=== PATIENT | female | born 1955 | race Caucasian/White ===

== ENCOUNTER 2017-08-30 08:12 | Observation (INO) | payer MEDICARE, OTHER ==
[2017-08-30 08:35] LABS: PCO2 Arterial 28 mmHg (35-45)
[2017-08-30 08:41] LABS: Hematocrit 37 % (35-47); Hemoglobin 12.5 g/dl (12.0-16.0); Mean Corpuscular HGB Conc 34 g/dl (31-36); Mean Corpuscular Hemoglobin 31 pg (27-31); Mean Corpuscular Volume 92 fL (80-97); Mean Platelet Volume 7 um3 (7.4-10.4); Red Blood Count 4.07 10^6/ul (4.0-5.4); Red Cell Distribution Width 16 % (10.5-15)
[2017-08-30 08:43] LABS: Urine Bilirubin Negative (Negative); Urine Glucose Negative (Negative); Urine Nitrite Negative (Negative)
[2017-08-30 08:56] LABS: Albumin 3.8 g/dL (3.2-5.2); BUN/Creatinine Ratio 17.5 (8-20); C Reactive Protein 18.81 mg/L (< 5.00); Calcium 8.7 mg/dL (8.6-10.3); EGFR African American 93.5 (>60); EGFR Non-African American 72.7 (>60); Globulin 3.3 g/dL (2-4); Potassium 3.3 mmol/L (3.5-5.0); Total Bilirubin 0.3 mg/dL (0.2-1.0); Total Protein 7.1 g/dL (6.4-8.9)
[2017-08-30 08:57] LABS: Troponin I 0.02 ng/mL (<0.04)
[2017-08-30] MEDS ORDERED: Potassium Chlor TAB* 20 MEQ TAB.ER PO ONE (09:03)
--- NOTE | 2017-08-30 09:43 | RAD ---
HISTORY: Shortness of breath COMPARISONS: August 30, 2017 at 12:58 AM VIEWS: 1: frontal portable view of the chest at 9:25 AM FINDINGS: LINES AND TUBES: None. CARDIOMEDIASTINAL SILHOUETTE: The cardiomediastinal silhouette is normal for portable technique. PLEURA: The costophrenic angles are sharp. No pleural abnormalities are noted. LUNG PARENCHYMA: There is patchy alveolar desiccation the lung bases bilaterally ABDOMEN: The upper abdomen is clear. There is no subphrenic gas. BONES AND SOFT TISSUES: No bone or soft tissue abnormalities are noted. IMPRESSION: [employer]. RECOMMEND FOLLOW-UP UNTIL RESOLUTION TO EXCLUDE UNDERLYING PULMONARY PARENCHYMAL PATHOLOGY
[2017-08-30] MEDS ORDERED: Azithromycin IV* 500 MG ADVAN VIAL IVPB ONE (10:00)
[2017-08-30] MEDS ORDERED: NS 0.9% IVPB ONE (10:00)
[2017-08-30] MEDS ORDERED: CEFTRIAXONE IVPB ONE (10:00)
[2017-08-30] MEDS ORDERED: cefTRIAXone(*) 1 GM ADVAN ONE (10:23)
[2017-08-30] MEDS ORDERED: Furosemide IV* 10 MG/ML VIAL (40 MG) IV ONE (11:15)
[2017-08-30] MEDS ORDERED: Acetaminophen TAB* 325 MG PO PRN (11:20)
[2017-08-30] MEDS ORDERED: Morphine INJ* 2 MG/ML 1 ML SYRINGE (TWO MG - NEW SYRINGE VERSION) IV PRN (11:20)
[2017-08-30 11:38] LABS: Magnesium 1.9 mg/dL (1.9-2.7)
--- NOTE | 2017-08-30 11:47 | ED ---
Maribell Nichols Alfonso, scribed for Pelon Encarnacion MD on 08/30/17 at 0828 . Shortness of Breath - HPI Summary HPI Summary: This patient is a 62 year old F BIBA from [facility] to [facility] with a chief complaint of SOB since a few months ago, worse since yesterday. She reports it feels like a big rubber band was across my diaphragm. She is currently on BiPaP. The patient rates the pain 0/10 in severity. Symptoms aggravated by position (lying down). Symptoms alleviated by breathing treatments EPIC DIRECTOR. Patient reports calf swelling, palpitations, weight loss (180 lb to 166 lb), and cough. Patient denies fever, CP, and pain. She recently completed a course of prednisone. - History of Current Complaint Chief Complaint: EDRespiratoryDistress Hx Obtained From: Patient Onset/Duration: Gradual Onset, Worse Since - yesterday, Other - Lasting months Timing: Constant Aggrevating Factors: Other - Lying down Alleviating Factors: Other - breathing treatment EPIC DIRECTOR Associated Signs & Symptoms: Edema - and cough - Allergy/Home Medications Allergies/Adverse Reactions: Allergies Allergy/AdvReac Type Severity Reaction Status Date / Time No Known Allergies Allergy Verified 08/30/17 08:44 PMH/Surg Hx/FS Hx/Imm Hx Musculoskeletal History: Reports: Hx Rheumatoid Arthritis Sensory History: Denies: Hx Deafness Opthamlomology History: Denies: Hx Legally Blind EENT History: Denies: Hx Deafness Infectious Disease History: No Infectious Disease History: Denies: Traveled Outside the [place] in Last 30 Days - Family History Known Family History: Positive: Other - CHF mother - Social History Alcohol Use: Weekly Substance Use Type: Reports: None Smoking Status (MU): Never Smoked Tobacco Review of Systems Positive: Other - weight loss (180 lb to 166 lb). Negative: Fever Positive: Palpitations. Negative: Chest Pain Positive: Shortness Of Breath, Cough Positive: Edema, Other - negative pain All Other Systems Reviewed And Are Negative: Yes Physical Exam - Summary Physical Exam Summary: VITAL SIGNS: Reviewed. GENERAL: Patient is a well-developed and nourished female who is lying comfortable in the stretcher. Patient is not in any acute respiratory distress. HEAD AND FACE: No signs of trauma. No ecchymosis, hematomas or skull depressions. No sinus tenderness. EYES: PERRLA, EOMI x 2, No injected conjunctiva, no nystagmus. EARS: Hearing grossly intact. Ear canals and tympanic membranes are within normal limits. MOUTH: Oropharynx within normal limits. NECK: Supple, trachea is midline, no adenopathy, no JVD, no carotid bruit, no c- spine tenderness, neck with full ROM. CHEST: Symmetric, no tenderness at palpation LUNGS: Decreased breath sounds bilaterally. Crackles in both bases of the lungs. CVS: Regular rate and rhythm, S1 and S2 present, no murmurs or gallops appreciated. ABDOMEN: Soft, non-tender. No signs of distention. No rebound no guarding, and no masses palpated. Bowel sounds are normal. EXTREMITIES: FROM in all major joints, no cyanosis or clubbing. 1+ edema. NEURO: Alert and oriented x 3. No acute neurological deficits. Speech is normal and follows commands. Anxious. SKIN: Dry and warm Triage Information Reviewed: Yes Vital Signs On Initial Exam: Initial Vitals Temp Pulse Resp BP Pulse Ox 98.8 F 124 20 133/83 98 08/30/17 08:14 08/30/17 08:14 08/30/17 08:14 08/30/17 08:14 08/30/17 08:14 Vital Signs Reviewed: Yes - [place] Coma Scale Coma Scale Total: 15 Diagnostics - Vital Signs Vital Signs Temp Pulse Resp BP Pulse Ox 08/30/17 08:14 98.8 F 124 20 133/83 98 - Laboratory Lab Results: Lab Results 08/30/17 08/30/17 08/30/17 Range/Units 08:20 08:30 08:30 WBC 14.0 H (3.5-10.8) 10^3/ul RBC 4.07 (4.0-5.4) 10^6/ul Hgb 12.5 (12.0-16.0) g/dl Hct 37 (35-47) % MCV 92 (80-97) fL MCH 31 (27-31) pg MCHC 34 (31-36) g/dl RDW 16 H (10.5-15) % Plt Count 458 H (150-450) 10^3/ul MPV 7 L (7.4-10.4) um3 Neut % (Auto) 93.1 H (38-83) % Lymph % (Auto) 5.0 L (25-47) % Wirt % (Auto) 1.6 (1-9) % Eos % (Auto) 0 (0-6) % Baso % (Auto) 0.3 (0-2) % Absolute Neuts (auto) 13.0 H (1.5-7.7) 10^3/ul Absolute Lymphs (auto) 0.7 L (1.0-4.8) 10^3/ul Absolute Monos (auto) 0.2 (0-0.8) 10^3/ul Absolute Eos (auto) 0 (0-0.6) 10^3/ul Absolute Basos (auto) 0 (0-0.2) 10^3/ul Absolute Nucleated RBC 0 10^3/ul Nucleated RBC % 0 APTT (26.0-36.3) seconds Patient Temperature Not Reportable ABG pH 7.52 H (7.35-7.45) ABG pH (Temp Correct) Not Reportable ABG pCO2 28 L (35-45) mmHg ABG pCO2 (Temp Corrct Not Reportable ABG pO2 61 L (80-100) mmHg ABG pO2 (Temp Correct Not Reportable ABG HCO3 25.6 (19-31) mmol/L ABG O2 Saturation 95.6 (95-98) % ABG Base Excess 0.9 (-2.0-2.0) Respiration Rate Not Reportable O2 Delivery Device Oxy Ventilator Type Not Reportable Vent Mode Not Reportable FiO2 Not Reportable Inspiratory Time Not Reportable PEEP Not Reportable Pressure Support Not Reportable Pressure Control Not Reportable EPAP Not Reportable IPAP Not Reportable BiPAP Not Reportable Sodium 139 (133-145) mmol/L Potassium 3.3 L (3.5-5.0) mmol/L Chloride 106 (101-111) mmol/L Carbon Dioxide 22 (22-32) mmol/L Anion Gap 11 (2-11) mmol/L BUN 14 (6-24) mg/dL Creatinine 0.80 (0.51-0.95) mg/dL Est GFR ( Amer) 93.5 (>60) Est GFR (Non-Af Amer) 72.7 (>60) BUN/Creatinine Ratio 17.5 (8-20) Glucose 174 H (70-100) mg/dL Calcium 8.7 (8.6-10.3) mg/dL Magnesium 1.9 (1.9-2.7) mg/dL Total Bilirubin 0.30 (0.2-1.0) mg/dL AST 16 (13-39) U/L ALT 11 (7-52) U/L Alkaline Phosphatase 88 (34-104) U/L Total Creatine Kinase 40 (10-223) U/L Troponin I 0.02 (<0.04) ng/mL C-Reactive Protein 18.81 H (< 5.00) mg/L B-Natriuretic Peptide ( - 100) pg/mL Total Protein 7.1 (6.4-8.9) g/dL Albumin 3.8 (3.2-5.2) g/dL Globulin 3.3 (2-4) g/dL Albumin/Globulin Ratio 1.2 (1-3) TSH Pending Urine Color Urine Appearance Urine pH (5-9) Ur Specific [place] (1.010-1.030) Urine Protein (Negative) Urine Ketones (Negative) Urine Blood (Negative) Urine Nitrate (Negative) Urine Bilirubin (Negative) Urine Urobilinogen (Negative) Ur Leukocyte Esterase (Negative) Urine Glucose (Negative) 08/30/17 08/30/17 08/30/17 Range/Units 08:30 08:30 08:30 WBC (3.5-10.8) 10^3/ul RBC (4.0-5.4) 10^6/ul Hgb (12.0-16.0) g/dl Hct (35-47) % MCV (80-97) fL MCH (27-31) pg MCHC (31-36) g/dl RDW (10.5-15) % Plt Count (150-450) 10^3/ul MPV (7.4-10.4) um3 Neut % (Auto) (38-83) % Lymph % (Auto) (25-47) % Wirt % (Auto) (1-9) % Eos % (Auto) (0-6) % Baso % (Auto) (0-2) % Absolute Neuts (auto) (1.5-7.7) 10^3/ul Absolute Lymphs (auto) (1.0-4.8) 10^3/ul Absolute Monos (auto) (0-0.8) 10^3/ul Absolute Eos (auto) (0-0.6) 10^3/ul Absolute Basos (auto) (0-0.2) 10^3/ul Absolute Nucleated RBC 10^3/ul Nucleated RBC % APTT 31.8 (26.0-36.3) seconds Patient Temperature ABG pH (7.35-7.45) ABG pH (Temp Correct) ABG pCO2 (35-45) mmHg ABG pCO2 (Temp Corrct ABG pO2 (80-100) mmHg ABG pO2 (Temp Correct ABG HCO3 (19-31) mmol/L ABG O2 Saturation (95-98) % ABG Base Excess (-2.0-2.0) Respiration Rate O2 Delivery Device Ventilator Type Vent Mode FiO2 Inspiratory Time PEEP Pressure Support Pressure Control EPAP IPAP BiPAP Sodium (133-145) mmol/L Potassium (3.5-5.0) mmol/L Chloride (101-111) mmol/L Carbon Dioxide (22-32) mmol/L Anion Gap (2-11) mmol/L BUN (6-24) mg/dL Creatinine (0.51-0.95) mg/dL Est GFR ( Amer) (>60) Est GFR (Non-Af Amer) (>60) BUN/Creatinine Ratio (8-20) Glucose (70-100) mg/dL Calcium (8.6-10.3) mg/dL Magnesium (1.9-2.7) mg/dL Total Bilirubin (0.2-1.0) mg/dL AST (13-39) U/L ALT (7-52) U/L Alkaline Phosphatase (34-104) U/L Total Creatine Kinase (10-223) U/L Troponin I (<0.04) ng/mL C-Reactive Protein (< 5.00) mg/L B-Natriuretic Peptide 1127 H ( - 100) pg/mL Total Protein (6.4-8.9) g/dL Albumin (3.2-5.2) g/dL Globulin (2-4) g/dL Albumin/Globulin Ratio (1-3) TSH Urine Color Yellow Urine Appearance Clear Urine pH 5.0 (5-9) Ur Specific [place] 1.008 L (1.010-1.030) Urine Protein Negative (Negative) Urine Ketones Negative (Negative) Urine Blood Negative (Negative) Urine Nitrate Negative (Negative) Urine Bilirubin Negative (Negative) Urine Urobilinogen Negative (Negative) Ur Leukocyte Esterase Negative (Negative) Urine Glucose Negative (Negative) Result Diagrams: 08/30/17 08:30 08/30/17 08:30 Lab Statement: Any lab studies that have been ordered have been reviewed, and results considered in the medical decision making process. - Radiology CXR Radiology Interpretation Completed By: Radiologist - [employer]. RECOMMEND FOLLOW-UP UNTIL RESOLUTION TO EXCLUDE UNDERLYING PULMONARY PARENCHYMAL PATHOLOGY. ED physician has reviewed this radiology report and agrees. - EKG 0837 Cardiac Rate: NL - BPM 95 EKG Rhythm: Sinus Rhythm EKG Interpretation: LBBB Course/Dx - Course Assessment/Plan: This patient is a 62 year old F BIBA from [facility] to [facility] with a chief complaint of SOB since a few months ago, worse since yesterday. She reports it feels like a big rubber band was across my diaphragm. She is currently on BiPaP. The patient rates the pain 0/10 in severity. Symptoms aggravated by position (lying down). Symptoms alleviated by breathing treatments EPIC DIRECTOR. Patient reports calf swelling, palpitations, weight loss (180 lb to 166 lb), and cough. Patient denies fever, CP, and pain. She recently completed a course of prednisone. Test results reveal WBC of 14, platelets of 458, potassium of 3.3, glucose 174, CRP of 18.8, BNP 1127, and Troponin of 0.02. Urinalysis negative for UTI. An EKG reveals NSR and LBBB. CXR reveals PATCHY BIBASIL[employer] CONSOLIDATION. RECOMMEND FOLLOW-UP UNTIL RESOLUTION TO EXCLUDE UNDERLYING PULMONARY PARENCHYMAL PATHOLOGY. ED physician has reviewed this radiology report and agrees. In the ED course the patient has remained stable in a face mask saturating at 96-98. She was given Rocephin and Azithromycin for the pneumonia. She was already given Lasix for the CHF and has outputted approximately 3 L of urine. At this time I Consulted Dr. Martinez (hospitalist) at 0918 who agrees to admit. The patient is agreeable with this plan. The patient is hemodynamically stable and alert and oriented x3. - Diagnoses Differential Diagnosis/HQI/PQRI: Positive: Bronchitis, CHF, COPD Exacerbation, CO, Pneumonia Provider Diagnoses: CHF exacerbation, Pneumonia - Physician Notifications Discussed Care of Patient With: Lorelei Martinez Time Discussed With Above Provider: 09:18 Instructed by Provider To: Other - Consulted Dr. Martinez (hospitalist) at 0918 who agrees to admit. Discharge - Discharge Plan Condition: Stable Disposition: ADMITTED TO [facility] The documentation as recorded by the Maribell martin Alfonso accurately reflects the service I personally performed and the decisions made by , Pelon Encarnacion MD.
[2017-08-30] MEDS ORDERED: Azithromycin IV(*) 500 MG in NS 0.9% 250 ML* 250 ML IVPB ONE (12:00)
--- NOTE | 2017-08-30 12:39 | ECHO ---
Patient: JULI BOB [facility] Rec#: [id number] : 1955 Date: 08/30/2017 Age: 62y Height: 172.72 cm / 68.0 in Weight: 75.3 kg / 166.0 lbs Sex: F BSA: 1.89 Room#: ED-14 Admit Date#: 08/30/2017 Type: Inpatient Referring: Lorelei Martinez MD Reading: Branden Cassidy MD Digital Product Manager: Yojana Jameson RDCS CC: Nell Medina Transthoracic Echocardiogram Indication: Pulmonary edema, CHF. BP: 116/67 HR: 112 Rhythm: Tachycardia Findings History: Rhumatoid arthritis Technical Comments: The study quality is fair. Completed at 1207. Left Ventricle: The left ventricular chamber size is mildly dilated. There is no left ventricular hypertrophy. There is global hypokinesis of the left ventricle with minor regional variation. There is moderately decreased left ventricular systolic function. The estimated ejection fraction is 20-25%. globally. Abnormal left ventricular diastolic function is observed. Abnormal left ventricular diastolic filling is observed, consistent with impaired relaxation. Left Atrium: The left atrium is mildly dilated. Right Ventricle: The right ventricular cavity size is normal. The right ventricular global systolic function is normal. Right Atrium: The right atrial cavity size is normal. Aortic Valve: The aortic valve is trileaflet. There is a trace of aortic regurgitation. There is no evidence of aortic stenosis. Mitral Valve: There is mitral annular calcification. The mitral valve leaflets are mildly thickened. There is moderate mitral regurgitation. There is no evidence of mitral stenosis. Tricuspid Valve: The tricuspid valve leaflets are normal. There is trace tricuspid regurgitation. Unable to estimate the right ventricular systolic pressure. There is no tricuspid stenosis. Pulmonic Valve: The pulmonic valve appears normal. There is trace to mild pulmonic regurgitation. There is no pulmonic stenosis. Pericardium: There is no significant pericardial effusion. There are no signs of significant hemodynamic compromise. A left pleural effusion is present. Aorta: There is no dilatation of the ascending aorta. There is no dilatation of the aortic arch. The aortic root is normal in size. Pulmonary Artery: The main pulmonary artery appears normal. Venous: The venous system is not well visualized. Summary: There was not any prior study for comparison. Conclusions The left ventricular chamber size is mildly dilated. There is global hypokinesis of the left ventricle with minor regional variation. The estimated ejection fraction is 20-25%. globally. TDS and the endocardium is not well visualized. Abnormal left ventricular diastolic function is observed. Abnormal left ventricular diastolic filling is observed, consistent with impaired relaxation. The left atrium is mildly dilated. There is a trace of aortic regurgitation. There is moderate mitral regurgitation. There is trace tricuspid regurgitation. Measurements Name Value Normal Range RVIDd (AP) 2D 2.6 cm (0.9 - 2.6) RVDdMajor (2D) 3.9 cm (2.2 - 4.4) RAd ISD 4CH 4.7 cm (3.4 - 4.9) RA (A4C)W 3.8 cm (2.9 - 4.6) IVSd (2D) 0.85 cm (0.6 - 1) LVPWd (2D) 0.83 cm (0.6 - 1) LVIDd (2D) 5.4 cm (3.6 - 5.4) LVIDs (2D) 4.7 cm - LV FS (2D) 14 % (25 - 45) Aortic Annulus 1.9 cm (1.4 - 2.6) Ao root diameter (2D) 3.1 cm (2.1 - 3.5) Ascending Ao 3 cm (2.1 - 3.4) Aortic arch 2.1 cm (1.8 - 3.4) LA dimension (AP) 2D 3.5 cm (2.3 - 3.8) LAd ISD 4CH 4.7 cm (2.9 - 5.3) LA ISD 4CH W 4.4 cm (2.5 - 4.5) Name Value Normal Range LA ESV SP 4CH (A/L) 73.99 ml - LA ESV SP 2CH (A/L) 66.62 ml - LA ESV BP (A/L) 72.45 ml - LA ESV SP 4CH (MOD) 60.31 ml - LA ESV SP 2CH (MOD) 63.34 ml - Name Value Normal Range MV E-wave Vmax 1.5 m/sec - MV deceleration time 91.64 msec - MV A-wave Vmax 0.72 m/sec - MV E:A ratio 2.08 ratio - LV septal e' Vmax 0.04 m/sec - LV lateral e' Vmax 0.04 m/sec - LV E:e' septal ratio 37.5 ratio - LV E:e' lateral ratio 37.5 ratio - Name Value Normal Range AV Vmax 1.1 m/sec - AV VTI 14.79 cm - AV peak gradient 4.53 mmHg - AV mean gradient 2.2 mmHg - LVOT Vmax 0.8 m/sec - LVOT VTI 12.6 cm - LVOT peak gradient 2.58 mmHg - LVOT mean gradient 1.34 mmHg - MAUREEN Vmax 0.74 m/sec - Name Value Normal Range PV Vmax 0.7 m/sec - PV peak gradient 1.94 mmHg -
[2017-08-30 12:52] LABS: TSH (Thyroid Stimulating Horm) 1.68 mcIU/mL (0.34-5.60)
--- NOTE | 2017-08-30 14:19 | HP ---
CC: Dr. Milan Gillis; ALANNA Ocampo; Dr. Eliseo Sosa, Allergy, Immunology, and Rheumatology Department, [facility], fax# [phone]; Dr. Cassidy * HISTORY AND PHYSICAL: DATE OF ADMISSION: 08/30/17 PRIMARY CARE PROVIDERS: Dr. Milan Gillis and ALANNA Ocampo CHIEF COMPLAINT: Shortness of breath. HISTORY OF PRESENT ILLNESS: Ms. Jacobsen is a 62-year-old female with history of rheumatoid arthritis, who presented to [facility] as a transfer from [facility] after she developed respiratory distress and presented to [facility]. The patient stated she has had problems with paroxysmal nocturnal dyspnea and cough whenever she tried to lie down for the past 3 months. In the past several days, she was unable to sleep and she decided to sleep propped with 3 pillows. In the past 12 hours, she was unable to do even that and she presented to [facility] in respiratory distress. She required to be treated with BiPAP. At [facility], she also received 125 mg of Solu-Medrol, 80 mg of Lovenox subcutaneously, 40 mg of Lasix after which she diuresed 3 L. A Toussaint was placed. After she was transferred to our facility and successful diuresis, the patient currently is on OxyMask at 10 L with saturation of 97%. A portable chest x-ray showed pulmonary edema and she has EKG showing left bundle branch block with unknown baseline. She is going to be admitted with a diagnosis of new-onset CHF. PAST MEDICAL HISTORY: 1. History of rheumatoid arthritis. Recently, the patient was switched off methotrexate to Humira as well as off prednisone for the past 6 weeks to Rituxan. The first infused was approximately 4 to 6 weeks ago. 2. History of appendectomy, hysterectomy, and partial colon resection in 1978 for complicated abscess. 3. History of bladder repair and rectocele repair in 1998. 4. History of anemia. 5. History of rheumatoid arthritis. 6. History of depression. MEDICATIONS: Include: 1. Zoloft 50 mg daily. 2. Estrogen compound one daily. 3. Gabapentin 200 mg q.h.s. 4. Flexeril 10 mg q.h.s. 5. Folic acid 1 mg daily. 6. Naltrexone that the patient uses off label 4 mg daily for rheumatoid arthritis. ALLERGIES: No known drug allergies. FAMILY HISTORY: Positive for mother, who just of congestive heart failure at age 89. The patient's son had history of thyroid cancer at age of 12. Father had history of alcoholism, of esophageal cancer, felt to be a consequence of his alcoholism. SOCIAL HISTORY: The patient denies tobacco, alcohol, or drug use. 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 Lives alone. Her sister who is a nurse from [employer] is her surrogate, her name is Malissa Jaime, phone number [phone]. REVIEW OF SYSTEMS: Please see history of present illness. In addition to the above mentioned, the patient stated that her ankles have been swollen for the past couple of days. Occasionally, she would note that her heart rate was rapid. She denies any chest pain. She noted dyspnea on exertion for the past month or so. She denies any fevers, but she noted to be flushed today in the morning. All the remaining 12 systems were reviewed with the patient and were otherwise negative. PHYSICAL EXAMINATION GENERAL: This is a very pleasant 62-year-old female, who is in no acute distress. Alert, awake, and oriented x3. VITAL SIGNS: Blood pressure of 126/80, heart rate of 95 and regular, respiratory rate 20, oxygen saturation 98% on OxyMask, temperature of 98.8. HEENT: Head is atraumatic, normocephalic. Eyes: Pupils are equal and reactive to light and accommodation. Oropharynx clear. Mucosa moist. NECK: Supple. No JVD. No bruits bilaterally. RESPIRATORY: Rales at bilateral bases. CARDIOVASCULAR: Regular rate and rhythm, tachycardia. No murmur. ABDOMEN: Soft, nontender. Bowel sounds are present in all 4 quadrants. EXTREMITIES: There is bilateral trace ankle edema. Pulses +2 bilaterally. No clubbing or cyanosis. NEURO: Speech clear. Cranial nerves II through XII grossly intact. Motor strength is 5/5 bilaterally. PSYCHIATRIC: The patient was tearful when I explained diagnosis of congestive heart failure since her mother just of congestive heart failure and the patient had been taking care of her for the past several months. Otherwise, there is no evidence of depression or anxiety that would be disproportional to the current diagnosis. SKIN: On evaluation of the skin, the patient's face is flushed, but no evidence of rashes or ecchymotic areas. DIAGNOSTIC STUDIES/LAB DATA: Sodium of 139, potassium of 3.3, chloride 106, carbon dioxide 22, BUN 14, creatinine 0.9. Liver function tests unremarkable. C-reactive protein of 18. Brain natriuretic peptide was 1127. CBC: White blood cell count of 14.0, hemoglobin of 12.5, hematocrit of 37, platelets 458. The patient's troponin was 0.02. ABG showed pH of 7.52, PCO2 of 28, PO2 of 61, bicarb 25. Urinalysis unremarkable. Portable chest x-ray, impression: "Patchy bibasilar consolidation. Recommend followup until resolution underlying pulmonary parenchymal pathology." In our emergency department, the patient received 40 mEq of potassium chloride orally, as well as azithromycin and ceftriaxone. The patient's EKG showed left bundle branch block. ASSESSMENT AND PLAN: 1. The patient has new-onset congestive heart failure/pulmonary edema. She appears to have had symptoms for the past several months. The patient is going to be admitted to telemetry monitored floor since her respiratory status had stabilized and she is much more comfortable now on OxyMask with oxygen levels in the high 90s. Transthoracic echocardiogram is going to be obtained, and also obtain magnesium and TSH levels. For the time being, I will not institute low-dose beta kumar, although it probably will be needed in approximately 24 hours. For the acute presentation, the patient is going to be continued on Lasix twice a day, strict I's and O's, and daily weights. I will ask Dr. Cassidy to see the patient in consultation. 2. In regards to the patient's rheumatoid arthritis, for the time being she is not treated with any apart from Rituxan. I agree with 1 dose of pneumonia coverage with antibiotics that occurred in the ED. At this point, with her CRP being 19, I will not continue antibiotics but will observe. 3. For the patient's depression, I will continue the patient on Zoloft. 4. For DVT prophylaxis, the patient is going to be placed on heparin subcutaneously bearing in mind the patient already received 1 mg/kg dose of Lovenox today, she is going to start on heparin subcutaneously for DVT prophylaxis tonight. 5. The patient's code status is full and her surrogate is her sister as mentioned above. 6. The patient's hypokalemia was replaced in the emergency department and I will place her on daily potassium supplement when she is in the hospital and on Lasix. TIME SPENT: Approximately 72 minutes was spent on admission of this patient, more than half that time was spent [id number] with the patient during the interview and physical exam. [id number]/[facility] #: [id number] HOSSEIN
--- NOTE | 2017-08-30 16:49 | CONS ---
CC: Dr. Martinez * CARDIOLOGY CONSULT: DATE OF CONSULT: 08/30/17 HISTORY OF PRESENT ILLNESS: I was asked by Dr. Martinez from the hospitalist service to see this patient for cardiology consultation, who transferred from [facility] with symptoms of shortness of breath. She was found to have elevated BNP. The patient is a pleasant 62-year-old female patient with known history of significant rheumatoid arthritis. She followed up with Rheumatology at the [facility]. She has been receiving high doses of prednisone according to her and then nonsteroidal anti- inflammatory and recently was started on rheumatoid arthritis medication with her cytogenetic technician, and that needed to be stopped a week ago, because she did not feel well on it. She had been feeling tired, fatigue, shortness of breath, lack of energy since the end of May and also swelling of the lower extremities. She gives no chest pain, no dizziness, no syncope, no fever, no chills, no pneumonia, no viral illness, no nausea, no vomiting, no hematochezia , no skin rash, no abdominal pain, no syncope is appreciated. She gives no history of myocardial infarction, no history of coronary artery disease. She gives no history of diabetes mellitus, hypertension. She mildly to moderately drinks alcohol, but she has not been drinking from the last few weeks. She gives no history of smoking. Upon presentation to our facility, she was found to be by chest x-ray, physical exam with congestive heart failure. Her BNP was elevated at 1127. Her echocardiogram done today showed mildly dilated left ventricle with an EF of 20% to 25%, moderate mitral insufficiency. Her troponins were 0.02 and 0.03. She had no symptoms of chest pain. PAST MEDICAL HISTORY: Includes rheumatoid arthritis. PAST SURGICAL HISTORY: Total abdominal hysterectomy with bilateral salpingo- oophorectomy and appendectomy. MEDICATIONS: As an inpatient include: 1. Tylenol 650 mg p.o. q.4 hours p.r.n. 2. Flexeril 10 mg p.o. at bedtime. 3. Lasix 40 mg daily. 4. Neurontin 200 mg daily. 5. Heparin 5000 units subcu q.8 hours. 6. Morphine 1 mg IV q.4 hours. 7. Potassium 20 mEq daily. 8. Zoloft 50 mg at bedtime. ALLERGIES: No known drug allergies. FAMILY HISTORY: No family history of premature coronary artery disease. SOCIAL HISTORY: She gives no history of smoking. Now, she does not drink. No history of illicit drug use. She has 2 sons, doing well. REVIEW OF SYSTEMS: Review of all other systems essentially is negative. PHYSICAL EXAM: On exam, she is awake, alert, and oriented. She is emotional. She is not in acute distress. Vitals: Blood pressure 115/67; temperature 97.5 , pulse 98. She is in sinus rhythm. Head and Neck Exam: Normocephalic, atraumatic head. Ear, nose, and throat essentially benign. Neck supple. JVP is positive at 45 degrees. Chest: Diminished air entry at the bases. No rales , no wheeze. Heart: Normal S1 and S2. No added sounds, no gallops. There is S3. No significant murmurs appreciated. Abdomen: Benign, soft. Positive bowel sounds. Extremities: A +2 pitting edema. 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 Skin exam is normal. Psych: Normal affect and mood. DIAGNOSTIC STUDIES/LAB DATA: Sodium 139, potassium 3.3, chloride 106, total CO2 is 22, BUN 14, creatinine 0.80. CRP 18.8, BNP 1127. White blood cell 14, hemoglobin 12.5, hematocrit 37, and platelets 458. EKG shows the patient to be in sinus rhythm with the left bundle branch block. IMPRESSION: The patient is a 62-year-old female with: 1. Severe cardiomyopathy global and mildly dilated left ventricle of unknown duration and etiology, possibly the etiology include her rheumatoid arthritis and treatment with high doses of prednisone and nonsteroidal anti-inflammatory. All other possibilities include alcoholic cardiomyopathy, viral cardiomyopathy , idiopathic cardiomyopathy, or ischemic cardiomyopathy, although I doubt it given it is global and the LV is dilated and troponins are negative. The patient had no symptoms of chest pain. 2. Abnormal EKG with complete left bundle-branch block. 3. Congestive heart failure secondary to #1. 4. Moderate mitral insufficiency, probably related to her severe cardiomyopathy. 5. History of [id number] alcohol drinking. 6. Severe rheumatoid arthritis, followed up with the Rheumatology at the [facility]. 7. Hypokalemia. 8. Abnormal chest x-ray. 9. Significantly elevated BNP related to her congestive heart failure. PLAN: This patient already on telemetry, I agree with the management initiated by Dr. Martinez, which I discussed at length this patient with her. A very low dose beta- kumar and MARY LOU inhibitors as tolerated as well as diuretics. Watch very carefully daily weight, I's and O's and restrict sodium to less than 2 g per 24 hours, fluid to less than 2 L per 24 hours. Avoid alcohol. Avoid significant caffeinated drinks and stimulants. Given her treatment of severe rheumatoid arthritis is complex and needs direct observation and given her severe cardiomyopathy, I do believe she might benefit from further close observation at the [facility] at the [facility], I have discussed this patient further with Dr. Reyes from the heart transplant center who kindly accepted the patient to be transferred and her cytogenetic technician will be following her closely as well. I discussed this again with Dr. Martinez, who will be discussing again with the family. I answered all their concerns and questions up to their satisfaction. Thank you very much for asking us to participate in the care of this patient. TIME SPENT: More than half of at least 60 plus minutes was in the education and counseling mode [id number], explaining all of the above and making further recommendations. [id number]/[facility] #: [id number] HOSSEIN
[2017-08-30] MEDS ORDERED: Furosemide IV* 10 MG/ML VIAL (40 MG) IV SCH (17:00)
[2017-08-30 20:14] VITALS: BP 112/58
[2017-08-30] MEDS ORDERED: Cyclobenzaprine TAB* 10 MG PO SCH (21:00)
[2017-08-30] MEDS ORDERED: Sertraline* 50 MG TAB PO SCH (21:00)
[2017-08-30] MEDS ORDERED: Heparin VIAL(*) 5000 UNITS/ML VIAL (FIVE THOUSAND) SUBCUT SCH (21:00)
[2017-08-30] MEDS ORDERED: Gabapentin CAP(*) 100 MG PO SCH (21:00)
--- NOTE | 2017-08-31 02:59 | TRS ---
CC: Dr. Reyes; Dr. Eliseo Sosa, [facility]; Dr. Cassidy ; Milan Gillis DO; Nell Pearson PA-C * TRANSFER SUMMARY: DATE OF ADMISSION: 08/30/17 DATE OF TRANSFER: To [facility] 08/30/17. ACCEPTING PHYSICIAN: Physician accepting the patient's transfer is Dr. Reyes from [facility], Cardiology Department, Congestive Heart Failure Department. CONSULTATIONS DURING THE HOSPITAL STAY: Included Dr. Cassidy from Cardiology. LABORATORY DATA/DIAGNOSTIC STUDIES: Laboratory data was originally obtained and included in my history and physical dictated on the same day. In addition to the above mentioned, the patient had transthoracic echocardiogram today, which showed EF of 20% to 25% globally with global hypokinesis of the left ventricle with minor regional variation. Abnormal left ventricular diastolic setting is observed consistent with impaired relaxation. There was moderate mitral regurgitation, trace of aortic regurgitation. There was also trace of tricuspid regurgitation. HOSPITALIZATION COURSE: Dipti Jacobsen is a 62-year-old female with a history of rheumatoid arthritis who presented to the [facility] after transfer from [facility] with congestive heart failure and pulmonary edema. The patient was admitted after she diuresed over 3 L after 40 mg of IV Lasix that she received at [place]. After admission, she was much more comfortable and was switched from OxyMask to oxygen at [address] Cassidy saw the patient in consultation and noted the patient's EF is 25%. The patient also has moderate mitral regurgitation. Dr. Cassidy discussed the findings with the patient, who is very anxious. Many of her family members have had problems with congestive heart failure and her mother who was nearly 90 years old just of congestive heart failure within the past several months. Dr. Cassidy counseled the patient that the best evaluation for the patient would be to be evaluated at [facility] for possibility of cardiac transplant and cardiac biopsy. At that point, the patient was very interested and transferred to [facility]. The case was discussed between Dr. Cassidy and Dr. Reyes from Cardiology Department from [facility] who kindly accepted the patient. Physical exam at the time of discharge is basically unchanged from the time of the admission today. The patient is alert and oriented x3. She still has rales at bilateral bases on lung auscultation. She is right now on 4 L of oxygen nasal cannula with oxygen saturations in the high 90s. She continues to be tachycardic with a heart rate in the one-teens. During the hospital stay, she received 2 doses of 40 mg of IV Lasix. Her total output so far during her hospital stay was . Please note that the transfer summary is in addition to history and physical dictated on the day of the patient's admission, which is the same day as the patient's transfer. TIME SPENT: Approximately 35 minutes were spent on transferring the patient. [id number]/[facility] #: [id number] [place]
[2017-08-31] MEDS ORDERED: Folic Acid TAB* 1 MG PO SCH (09:00)
[2017-08-31] MEDS ORDERED: Potassium Chlor TAB* 20 MEQ TAB.ER PO SCH (09:00)
== END 2017-08-30 20:00 | disposition short-term general hospital (02) ==
LOC: ED 08:12 → MEDTELE 11:02 → INTOOBSV 11:02
PROVIDERS: ADMIT Internal Medicine; ATTEND Internal Medicine
DX: I50.9 Heart failure, unspecified (principal); M06.9 Rheumatoid arthritis, unspecified; F32.9 Major depressive disorder, single episode, unspecified; I42.9 Cardiomyopathy, unspecified; I34.0 Nonrheumatic mitral (valve) insufficiency; I44.7 Left bundle-branch block, unspecified; Z79.899 Other long term (current) drug therapy
CPT/HCPCS: 36415; 36600; 71010; 80053; 81003; 82550; 82803; 83735; 83880; 84443; 84484; 85025; 85730; 86140; 87040; 93005; 93306; 96365; 96375; 99284; A9270-GY; G0378; J0456; J0696; J1940